=== PATIENT | male | born 1990 | race Caucasian/White ===

== ENCOUNTER 2019-02-05 06:29 | Emergency (ER) | payer BC, OTHER ==
[~2019-02-05] VITALS: Ht 190.5 cm; Wt 124.7 kg
[2019-02-05] MEDS ORDERED: NS IV 1000 ML 1,000 ML ONE (06:46)
[2019-02-05] MEDS ORDERED: ONDANSETRON 4 MG/2 ML (SDV) Z0FRAN ONE (06:46)
[2019-02-05] MEDS ORDERED: fentaNYL INJECTION 100 MCG/2 ML AMP ONE (06:47)
[2019-02-05] MEDS ORDERED: NS IV 1000 ML 1,000 ML IV SCH (07:00)
[2019-02-05] MEDS ORDERED: fentaNYL INJECTION 100 MCG/2 ML AMP IVP ONE (07:00)
[2019-02-05] MEDS ORDERED: ONDANSETRON 4 MG/2 ML (SDV) Z0FRAN IVP ONE (07:00)
--- NOTE | 2019-02-05 07:00 | NUR ---
Report from Rachel LAM.
--- NOTE | 2019-02-05 07:06 | ED Abdominal Pain ---
General Chief Complaint: Abdominal/GI Problems Stated Complaint: LLQ PAIN,NAUSEA,VOMITTING Nursing Triage Note: Patient states that he began having abdominal pain, diarrhea, nausea and vomiting at approximately midnight todays date. Sepsis Screen: No Definite Risk Source of Information: Patient Exam Limitations: No Limitations History of Present Illness Date Seen by Provider: Feb 05, 2019 Time Seen by Provider: 07:03 Initial Comments This 28-year-old male presents with abdominal pain and began last night. The patient has had similar episodes in the past from kidney stones. His last kidney stones were approximately a months ago. In addition to the left flank and left lower quadrant pain the patient had an onset of nausea vomiting and diarrhea that began this morning. Patient denies associated fever, chills, hematuria, dysuria, previous abdominal surgery, change in medications, hematemesis or black or tarry stools. Allergies and Home Medications Allergies Coded Allergies: No Known Drug Allergies (Unverified , 02/05/19) Patient Home Medication List Home Medication List Reviewed: Yes Review of Systems Review of Systems Constitutional: No chills, No fever EENTM: No Blurred Vision Respiratory: Denies Cough Cardiovascular: Denies Chest Pain Gastrointestinal: See HPI, Abdominal Pain; Denies Constipated; Diarrhea, Nausea; Denies Rectal Bleeding; Vomiting Genitourinary: See HPI; Denies Burning, Denies Discharge, Denies Drainage; Flank Pain; Denies Hematuria Musculoskeletal: see HPI, back pain (left flank) Skin: No change in color, No rash Psychiatric/Neurological: No Symptoms Reported Endocrine: No Symptoms Reported Hematologic/Lymphatic: No Symptoms Reported Past Auytcpx-Uhcuap-Ljgluc Hx Past Med/Social Hx: Reviewed Nursing Past Med/Soc Hx Patient Social History Alcohol Use: Denies Use Recreational Drug Use: No Type Used: Smokeless Tobacco Recent Foreign Travel: No Contact w/Someone Who Travel: No Recent Infectious Disease Expo: No Recent Hopitalizations: No Physical Abuse: No Sexual Abuse: No Mistreated: No Fear: No Seasonal Allergies Seasonal Allergies: No Past Medical History Surgeries: No Respiratory: No Cardiac: No Neurological: No Genitourinary: No Gastrointestinal: No Musculoskeletal: No Endocrine: No HEENT: No Cancer: No Psychosocial: No Integumentary: No Physical Exam Vital Signs Vital Signs - First Documented 02/05/19 06:35 Temp 97.2 Pulse 51 Resp 16 B/P (MAP) 164/94 (117) Pulse Ox 98 O2 Delivery Room Air Capillary Refill : Less Than 3 Seconds Height/Weight/BMI Height: 6'3.00" Weight: 275lbs. 0oz. [id number]; BMI Method:Stated General Appearance: WD/WN, moderate distress HEENT: normal ENT inspection Neck: normal inspection Respiratory: lungs clear, no respiratory distress Cardiovascular: regular rate, rhythm, no murmur Gastrointestinal: abnormal bowel sounds (hypoactive bowel sounds), tenderness (there is tenderness to palpation in the left lower quadrant.) Extremities: normal range of motion, normal inspection Back: no CVA tenderness (on the left) Neurologic/Psychiatric: no motor/sensory deficits, alert Skin: normal color, warm/dry Progress/Results/Core Measures Results/Orders Lab Results Laboratory Tests Test 02/05/19 06:45 Range/Units White Blood Count 8.5 4.3-11.0 10^3/uL Red Blood Count 4.90 4.35-5.85 10^6/uL Hemoglobin 15.3 13.3-17.7 G/DL Hematocrit 44 40-54 % Mean Corpuscular Volume 90 80-99 FL Mean Corpuscular Hemoglobin 31 25-34 PG Mean Corpuscular Hemoglobin Concent 35 32-36 G/DL Red Cell Distribution Width 13.3 10.0-14.5 % Platelet Count 236 130-400 10^3/uL Mean Platelet Volume 10.5 H 7.4-10.4 FL Neutrophils (%) (Auto) 58 42-75 % Lymphocytes (%) (Auto) 30 12-44 % Monocytes (%) (Auto) 11 0-12 % Eosinophils (%) (Auto) 1 0-10 % Basophils (%) (Auto) 0 0-10 % Neutrophils # (Auto) 4.9 1.8-7.8 X 10^3 Lymphocytes # (Auto) 2.6 1.0-4.0 X 10^3 Monocytes # (Auto) 0.9 0.0-1.0 X 10^3 Eosinophils # (Auto) 0.1 0.0-0.3 10^3/uL Basophils # (Auto) 0.0 0.0-0.1 10^3/uL Sodium Level 142 135-145 MMOL/L Potassium Level 4.1 3.6-5.0 MMOL/L Chloride Level 103 98-107 MMOL/L Carbon Dioxide Level 23 21-32 MMOL/L Anion Gap 16 H 5-14 MMOL/L Blood Urea Nitrogen 10 7-18 MG/DL Creatinine 1.00 0.60-1.30 MG/DL Estimat Glomerular Filtration Rate > 60 BUN/Creatinine Ratio 10 Glucose Level 122 H 70-105 MG/DL Calcium Level 9.4 8.5-10.1 MG/DL Corrected Calcium 9.0 8.5-10.1 MG/DL Total Bilirubin 0.3 0.1-1.0 MG/DL Aspartate Amino Transf (AST/SGOT) 15 5-34 U/L Alanine Aminotransferase (ALT/SGPT) 16 0-55 U/L Alkaline Phosphatase 89 40-136 U/L Total Protein 6.9 6.4-8.2 GM/DL Albumin 4.5 3.2-4.5 GM/DL Lipase 20 8-78 U/L My Orders Orders - JESSICA GORE MD Ct Abd/Pelvis Wo(Kidney Stone) (02/05/19 07:01) Cbc With Automated Diff (02/05/19 07:01) Comprehensive Metabolic Panel (02/05/19 07:01) Lipase (02/05/19 07:01) Ua Culture If Indicated (02/05/19 07:01) Ketorolac Injection (Toradol Injection) (02/05/19 07:45) Medications Given in ED Current Medications Medications Dose Ordered Sig/Job Route Start Time Stop Time Status Last Admin Dose Admin Fentanyl Citrate 50 mcg ONCE ONCE IVP 02/05/19 07:00 02/05/19 07:01 DC 02/05/19 06:55 50 MCG Ketorolac Tromethamine 30 mg ONCE ONCE IVP 02/05/19 07:45 02/05/19 07:46 DC 02/05/19 07:34 30 MG Ondansetron HCl 4 mg ONCE ONCE IVP 02/05/19 07:00 02/05/19 07:01 DC 02/05/19 06:55 4 MG Vital Signs/I&O 02/05/19 06:35 Temp 97.2 Pulse 51 Resp 16 B/P (MAP) 164/94 (117) Pulse Ox 98 O2 Delivery Room Air Blood Pressure Mean: 117 Progress Progress Note : Time: 07:32 Progress Note The patient received no relief with 50 g of fentanyl IV. 30 mg Toradol IV were given. 8 a.m. The patient received good pain relief with IV Toradol. Patient's CT demonstrates a 2 mm left UVJ stone that is partially obstructing. I discussed findings with patient and his . Will dispense oral Toradol and Zofran for the patient. I recommended that he follow-up with his caregivers tomorrow if he was not pain free. I asked him to return to the emergency department for any further problems or questions. Departure Impression Primary Impression: Kidney stone on left side Disposition: HOME, SELF-CARE Condition: Improved Departure-Patient Inst. Decision time for Depature: 08:04 Referrals: [facility] [place] Patient Instructions: Kidney Stones (DC) Add. Discharge Instructions: Toradol and Zofran as prescribed for pain and nausea respectively. Follow-up with [facility] tomorrow if your pain has not resolved. Return if any problems or questions. All discharge instructions reviewed with patient and/or family. Voiced understanding. Scripts Ketorolac Tromethamine (Ketorolac Tromethamine) 10 Mg Tablet 10 MG PO Q6H for p, #20 TAB Prov: JESSICA GORE MD 02/05/19 Ondansetron (Ondansetron Odt) 4 Mg Tab.rapdis 4 MG PO Q4H for Nausea, #14 TAB Prov: JESSICA GORE MD 02/05/19 JESSICA GORE MD Feb 05, 2019 07:06
[2019-02-05 07:30] LABS: HEMATOCRIT 44 % (40-54); HEMOGLOBIN 15.3 G/DL (13.3-17.7); MEAN CORPUSCULAR HEMOGLOBIN 31 PG (25-34); MEAN CORPUSCULAR HGB CONC 35 G/DL (32-36); MEAN CORPUSCULAR VOLUME 90 FL (80-99); WHITE BLOOD COUNT 8.5 10^3/uL (4.3-11.0)
[2019-02-05 07:31] LABS: BASOPHILS % (AUTO) 0 % (0-10); EOSINOPHILS # (AUTO) 0.1 10^3/uL (0.0-0.3); EOSINOPHILS % (AUTO) 1 % (0-10); LYMPHOCYTES # (AUTO) 2.6 X 10^3 (1.0-4.0); LYMPHOCYTES % (AUTO) 30 % (12-44); MEAN PLATELET VOLUME 10.5 FL (7.4-10.4); MONOCYTES # (AUTO) 0.9 X 10^3 (0.0-1.0); MONOCYTES % (AUTO) 11 % (0-12); NEUTROPHILS # (AUTO) 4.9 X 10^3 (1.8-7.8); NEUTROPHILS % (AUTO) 58 % (42-75); PLATELET COUNT 236 10^3/uL (130-400); RED CELL DISTRIBUTION WIDTH 13.3 % (10.0-14.5)
[2019-02-05 07:41] LABS: BILIRUBIN,TOTAL 0.3 MG/DL (0.1-1.0); CALCIUM 9.4 MG/DL (8.5-10.1)
[2019-02-05 07:43] LABS: ALANINE AMINOTRANSFERASE 16 U/L (0-55); ALKALINE PHOSPHATASE 89 U/L (40-136); BUN/CREATININE RATIO 10; CARBON DIOXIDE 23 MMOL/L (21-32); CHLORIDE 103 MMOL/L (98-107); GFR ESTIMATED > 60; GLUCOSE 122 MG/DL (70-105); POTASSIUM 4.1 MMOL/L (3.6-5.0); SODIUM 142 MMOL/L (135-145); TOTAL PROTEIN 6.9 GM/DL (6.4-8.2)
[2019-02-05 07:44] LABS: ALBUMIN 4.5 GM/DL (3.2-4.5); LIPASE 20 U/L (8-78)
[2019-02-05] MEDS ORDERED: KETOROLAC 30 MG/ML VIAL IVP ONE (07:45)
--- NOTE | 2019-02-05 07:45 | Diagnostic Imaging Report ---
PROCEDURE: CT urinary tract, rule out kidney stone. TECHNIQUE: Multiple contiguous axial images were obtained through the abdomen and pelvis without the use of intravenous contrast. Auto Exposure Controls were utilized during the CT exam to meet ALARA standards for radiation dose reduction. INDICATION: Left lower quadrant abdominal pain with nausea and emesis There is slight dependent atelectasis and/or pneumonitis in the lung bases. Unenhanced images of the liver and spleen reveal no focal abnormality. Gallbladder, pancreas and biliary tree are unremarkable in appearance. No adrenal gland abnormality is identified. No renal lesion is identified however there is mild left hydronephrosis and left hydroureter to the level of an approximately 0.2 cn calculus in the distal left ureter. Bladder is incompletely distended which limits evaluation. There are multiple calcified phleboliths seen bilaterally in the pelvis. There is no evidence of appendiceal inflammation. No organized fluid collection is identified. No bowel obstruction is present. IMPRESSION: At least partially obstructing 0.2 cm calculus in the distal left ureter with associated mild left hydronephrosis and hydroureter. Otherwise there is no acute abnormality seen within the abdomen or pelvis. Dictated by: Dictated on workstation # [id number]
[2019-02-05] MEDS ORDERED: ONDA4TAB11 PO (08:07)
[2019-02-05] MEDS ORDERED: KETO10TA PO (08:08)
[2019-02-05 08:19] VITALS: BP 123/77
== END 2019-02-05 08:19 | disposition home or self-care (01) ==
LOC: ER FS 06:32
DX: N13.2 Hydronephrosis with renal and ureteral calculous obstruction (principal)
CPT/HCPCS: 36415; 74176; 80053; 83690; 85025